=== PATIENT | female | born 1990 | race Caucasian/White ===

== ENCOUNTER → 2016-08-24 | Outpatient (CLI) | payer BC, OTHER ==
[2016-08-24 17:58] LABS: URINE APPEARANCE CLEAR (CLEAR); URINE BILIRUBIN NEG (NEG); URINE COLOR YELLOW; URINE NITRITE NEG (NEG); URINE SPECIFIC GRAVITY 1.012 (1.000-1.030); UROBILINOGEN NEG (NEG)
[2016-08-24 17:59] LABS: MANUAL MICROSCOPIC REQUIRED? NO; REVIEW REQ? NO
== END | disposition home or self-care (01) ==
LOC: C.LABSPEC 17:30 → C.PAPS 17:30
PROVIDERS: ATTEND Obstetrics & Gynecology
DX: R10.2 Pelvic and perineal pain (principal)

== ENCOUNTER → 2016-11-30 | Outpatient (CLI) | payer OTHER ==
--- NOTE | 2016-11-30 15:30 | MAMMOGRAPHY REPORT ---
ULTRASOUND OF RIGHT BREAST: 11/30/2016 CLINICAL HISTORY: 25 year old woman presents with a monterroso sized palpable lump in the 12:00 right breas t for approximately one month. She has a history of a different palpable lump in the 10:00 right silvestre ast in 2010. COMPARISON: Comparison is made to exams dated: 03/01/2011 ultrasound and 03/01/2011 [facility]. FINDINGS: Targeted ultrasound was performed in the area of new palpable lump pointed out by the patie nt, within the 12:00 right breast, 9 cm from the nipple. On palpation, there is a firm rubbery mobil e mass. On ultrasound, there is an oval parallel circumscribed hypoechoic solid mass measuring 13.3 x 6.5 x 15.3 mm. This most likely represents a benign fibroadenoma. Targeted ultrasound was also pe rformed in the 10:00 right breast, 10 cm from the nipple in the area of previously observed hypoechoi c solid mass identified on the 03/01/2011 ultrasound. A hypoechoic solid mass is again seen, lobulat ed and circumscribed borders. It measures 17.1 x 13.8 x 12.5 mm. This has not significantly changed in size and May BE slightly smaller comparing to the 2011 ultrasound. Fine-needle aspiration based on palpation in the pathology department yielded a benign breast aspirate at that time. IMPRESSION: ACR BI-RADS CATEGORY 4A: LOW SUSPICION FOR MALIGNANCY - FOLLOW-UP RECOMMENDED 1. There is an indeterminate solid palpable 15 mm mass in the 12:00 right breast, with similar sonog raphic appearance to a previously aspirated benign mass in the 10:00 right breast. This most likely represents a benign fibroadenoma, but definitive characterization with an ultrasound-guided core need le biopsy is recommended given the size greater than a centimeter. These results and recommendations were discussed with the patient at the time of the exam. She tenta tively scheduled the biopsy prior to leaving our department. Aleida Olmstead M.D. ay/:11/30/2016 13:01:51 Veterans Service Officer: Dr. Aleida Olmstead, [facility] letter sent: Abnormal 4/5 BI-RADS Code: ACR BI-RADS Category 4A: Low Suspicion For Malignancy
== END | disposition home or self-care (01) ==
LOC: C.MAMM 12:19
PROVIDERS: ATTEND Obstetrics & Gynecology
DX: N63 Unspecified lump in breast (principal)

== ENCOUNTER → 2016-12-10 | Outpatient (CLI) | payer OTHER ==
--- NOTE | 2016-12-10 08:41 | Discharge Instructions ---
Discharge Instructions Procedure Procedure Date: Dec 10, 2016. Reason for visit: Rt Mass. Discharge Discharge Date: Dec 10, 2016. Discharge Diagnosis: post right breast ultrasound guided core biopsy Instructions Activity Recommendations: Additional Limitations (see below) Return to School/Work: no limitations Recommended Home Diet: No Limitations Provider Instructions: ACTIVITY RECOMMENDATIONS: * No lifting, pushing, pulling or exercising the affected side for three days. RETURN TO SCHOOL/WORK: * You may return to work/school after the procedure, but do not perform any strenuous activities for 24 to 48 hours. MEDICATIONS: * Tylenol (two 325 mg) every four to six hours if needed for mild pain (if not allergic to Tylenol). DIET: * Resume previous diet. SPECIAL CARE INSTRUCTIONS: * Keep biopsy site dry for 24 hours. May shower after 24 hours, but do not soak (bathe) incision. * May remove Tegaderm (plastic patch) tomorrow AFTER showering. * Leave the steri-strips on for one week. Allow the steri-strips to fall off by themselves. If not off after one week, you may remove them. You may place a Bandaid crosswise over the strips, if desired. * Apply ice 10 minutes on and 10 minutes off as needed. * Wear a bra at bedtime to sleep more comfortably for 2-3 days. * Your referring physician should have the results after approximately 5 to 7 business days. * Call for unusual bleeding, fever, drainage, etc or if you have any questions call [phone] during normal business hours or after hours call Dr Olmstead, . FOLLOW UP VISIT: Follow-up with Referring Physician as scheduled. Allergies Coded Allergies: Aspirin (Verified Allergy, Unknown, 04/12/10) Ibuprofen (Verified Allergy, Unknown, 04/12/10) Bismuth (Unverified Adverse Reaction, Unknown, UNKNOWN, 07/08/14) Bismuth Subsalicylate (Unverified Adverse Reaction, Unknown, UNKNOWN, 07/08) Salicylates (Unverified Adverse Reaction, Unknown, UNKNOWN, 07/08/14) Daphne Erwin Recommendations: Call your doctor if: * Temperature above 101 degrees * Pain not relieved by pain medicine ordered * There is increased drainage or redness from any incision * You have any unanswered questions or concerns. Your Doctors Instructions noted above were prepared by provider Aleida Olmstead. Patient Signature Section: Patient Instructions Signature Page Nina Liang Patient (or Guardian) Signature/Date: I have read and understand the instructions given to me by my caregivers. Caregiver/RN/Doctor Signature/Date: The above-named patient and/or guardian has received patient instructions on this date. + Original Patient Signature Page (only) stays with chart. Please make copy for patient.
--- NOTE | 2016-12-10 14:03 | MAMMOGRAPHY REPORT ---
ULTRASOUND GUIDED BIOPSY RIGHT BREAST: 12/10/2016 CLINICAL HISTORY: Solid palpable oval hypoechoic 15 mm mass in the 12:00 right breast. Patient prese nts for ultrasound-guided core needle biopsy. COMPARISON: Comparison is made to exams dated: 11/30/2016 ultrasound, 03/01/2011 ultrasound, and 02/11 consultation - [facility]. PATIENT CONSENT: The procedure, risks and benefits were discussed with the patient and informed conse nt was obtained both verbally and in writing. Specific risks to this procedure include: bleeding, in fection, puncture of adjacent structure, nontarget biopsy, sampling error, pain, metal allergy and me dication reaction. PROCEDURE DESCRIPTION: A time out was performed and the right breast was agreed as the site of biopsy . The skin was prepped and draped in the usual sterile fashion. The solid palpable circumscribed mass in the right 12:00 breast was chosen as the target for biopsy. Subcutaneous and intraparenchymal 1% buffered lidocaine, with and without epinephrine, was administered as local anesthesia. A skin incisi on was made. Through the incision, 3 samples were taken with a 14 gauge Achieve biopsy device. A rib bon shaped metallic marker was placed within the mass at the biopsy site. Hemostasis was achieved aft er manual compression. The patient tolerated the procedure well and there was no immediate complicati on. The samples were sent to the pathology department in an appropriately labeled container. Post procedure mammography was deferred given the patient's age. IMPRESSION: ULTRASOUND GUIDED BIOPSY Status post ultrasound guided core biopsy of a solid palpable mass in the 12:00 right breast, with ri bbon shaped metallic biopsy marker placed at the site of the biopsy. The patient will receive notification of the biopsy results from her referring physician. Aleida Olmstead M.D. ay/:12/10/2016 08:46:08 Cadd Manager: Tarsha Thomason, [facility]
== END | disposition home or self-care (01) ==
LOC: C.MAMM 08:00
PROVIDERS: ATTEND Obstetrics & Gynecology
DX: D24.1 Benign neoplasm of right breast (principal)